=== PATIENT | male | born 1940 | race Caucasian/White ===

== ENCOUNTER 2017-09-21 07:26 | Outpatient (CLI) | payer MEDICARE, BC ==
[2017-09-21] MEDS ORDERED: Iopamidol 370 76% 100 ML VIAL ONE (09:00)
--- NOTE | 2017-09-21 10:05 | CT ---
CT THORAX WITH CONTRAST: DATE: 09/21/17. HISTORY: A 77-year-old male with myasthenia gravis. TECHNIQUE: IV iodinated contrast media: 60 mL of Isovue 370. COMPARISON: None. FINDINGS: There is no mediastinal mass or lymphadenopathy. Heavy atherosclerotic calcification of LAD and its branches. Ectasia of ascending thoracic aorta without aneurysm. No cardiomegaly, pericardial effusi on, pleural effusion, or pneumothorax. Tiny calcified granuloma in the right lower lobe. Otherwise, the lungs are essentially clear. No emphysematous changes. No destructive osseous lesion. Tiny 0. 5 cm hypodensity in the right lobe of the liver in hepatic segment 7, too small to characterize. The rest of the liver is normal. Inferior tip of right lobe of liver not included. A 1.7 cm round cyst ic lesion at lateral upper pole parenchyma of right kidney which is attached to a 1 cm daughter cyst, which contains tiny focal hyperdensity at its posterior edge, perhaps a calcification. There are mu ltiple cysts in the left kidney. No adrenal mass or splenomegaly. IMPRESSION: 1. No thymoma. 2. Multiple bilateral renal cysts, including what may be a Bosniak category II cystic lesion in the right renal upper pole, incompletely characterized on a single phase scan. 3. Coronary atherosclerotic disease. LEORA Louis POS: [facility]
== END 2017-09-21 07:27 | disposition home or self-care (01) ==
LOC: SCSCT 07:26
PROVIDERS: ATTEND Psychiatry & Neurology Neurology
DX: G70.00 Myasthenia gravis without (acute) exacerbation (principal); I25.10 Atherosclerotic heart disease of native coronary artery without angina pectoris; N28.1 Cyst of kidney, acquired
CPT/HCPCS: 71260; 82565

== ENCOUNTER 2019-02-11 15:00 | Inpatient (IN) | payer MEDICARE, BC ==
[2019-02-11 15:58] LABS: Hemoglobin 15.5 g/dL (14.0-18.0); Mean Corpuscular HGB CONC 33.7 g/dL (32.0-36.0); Mean Corpuscular Hemoglobin 32.6 pg (27.0-31.0); Mean Corpuscular Volume 96.6 fL (78.0-98.0); Mean Platelet Volume 6.6 fL (7.4-10.4); Platelet Count 227 thou/uL (130-400); RBC Distribution Width 11.9 % (11.5-14.5); Red Blood Cell (RBC) Count 4.76 mill/uL (4.70-6.10); White Blood Cell (WBC) Count 7.3 thou/uL (4.8-10.8)
[2019-02-11 16:16] LABS: Anion Gap 12 mmol/L (10-20); BUN (Urea Nitrogen) 23 mg/dL (8.4-25.7); Calc. Creatinine Clearance 0 mL/min (70-130); Calcium 9.3 mg/dL (7.8-10.44); Carbon Dioxide 24 mmol/L (23-31); Chloride 108 mmol/L (98-107); Estimated GFR-MDRD 67; Glucose 153 mg/dL (83-110); Potassium 4.7 mmol/L (3.5-5.1); Sodium 139 mmol/L (136-145)
[2019-02-14] MEDS ORDERED: Dexmedetomidine 200 MCG/2 ML VIAL ONE (06:34)
[2019-02-14] MEDS ORDERED: Midazolam HCl 2 mg/2 ml Vial ONE (06:34)
[2019-02-14] MEDS ORDERED: Vecuronium 10 MG VIAL ONE ×2 (06:34→16:53)
[2019-02-14] MEDS ORDERED: Fentanyl 100 MCG/2 ML VIAL ONE (06:34)
[2019-02-14] MEDS ORDERED: Midazolam HCl 5 mg/5 ml Vial ONE (06:34)
[2019-02-14] MEDS ORDERED: Heparin 10,000 UNITS/1 ML VIAL 30,000 UNITS in Sodium Chloride 0.9% 1,000 ML FS SCH (06:45)
[2019-02-14] MEDS ORDERED: ceFAZolin Sodium (SDC) 2 GM/100 ML BAG ONE (07:09)
[2019-02-14] MEDS ORDERED: Hydrocortisone Sod Succ/PF 100 mg/2 ml Vial ONE ×2 (07:22→16:53)
[2019-02-14] MEDS ORDERED: SUGAMMADEX SODIUM 500 MG/5 ML VIAL ONE (10:47)
[2019-02-14] MEDS ORDERED: SUGAMMADEX SODIUM 200 MG/2 ML VIAL ONE (10:48)
[2019-02-14] MEDS ORDERED: Bisacodyl 5 MG TAB PO PRN (11:09)
[2019-02-14] MEDS ORDERED: hydrALAZINE 20 MG/ML VIAL SLOW IVP PRN (11:09)
[2019-02-14] MEDS ORDERED: Bisacodyl 10 MG SUPP PR PRN (11:09)
[2019-02-14] MEDS ORDERED: Acetaminophen 325 MG TAB PO PRN (11:09)
[2019-02-14] MEDS ORDERED: Fentanyl 100 MCG/2 ML VIAL SLOW IVP PRN ×2 (11:09)
[2019-02-14] MEDS ORDERED: niCARdipine 25 MG in Sodium Chloride 0.9% 250 ML 250 ML IVPB PRN (11:09)
[2019-02-14] MEDS ORDERED: Post-Op Insulin Drip Protocol IVPB ONE (11:09)
[2019-02-14] MEDS ORDERED: Guaifenesin DM 100-10/5 ML UDCUP PO PRN (11:09)
[2019-02-14] MEDS ORDERED: HEXTEND 6% LR 500ML 500 ML IVPB PRN (11:09)
[2019-02-14] MEDS ORDERED: Norepinephrine 8 MG in Dextrose 5% in Water 242 ML IVPB PRN (11:09)
[2019-02-14] MEDS ORDERED: Promethazine HCl 25 MG/ML VIAL IM PRN (11:09)
[2019-02-14] MEDS ORDERED: HYDROcodone/Acetaminophen 5/325 mg Tablet PO PRN ×2 (11:09)
[2019-02-14] MEDS ORDERED: Morphine 4 MG/ML VIAL SLOW IVP PRN (11:09)
[2019-02-14] MEDS ORDERED: Ondansetron PF 4 MG/2 ML Vial IVP PRN (11:09)
[2019-02-14] MEDS ORDERED: Mag-Al 1200 mg/1200 mg/30 ML UDCUP PO PRN (11:09)
[2019-02-14] MEDS ORDERED: Nitroglycerin 50 MG/250 ML BOT 250 ML IVPB PRN (11:09)
[2019-02-14] MEDS ORDERED: DOPamine 400 MG/D5W 250 ML 250 ML IVPB PRN (11:09)
[2019-02-14] MEDS ORDERED: Potassium Chloride 20 MEQ/100 ML PREMIX BAG IVPB PRN (11:09)
[2019-02-14 11:29] LABS: Actual Bicarbonate (HCO3a) 23.4 mEq/L (22-28); Base Excess (BEa) -3.5 mEq/L (-2.0 to +3.0); CO2 Tension 49.4 mmHg (35.0-45.0); Calcium, Ionized 1.29 mmol/L (1.12-1.30); Carboxyhemoglobin (COHb) 1.3 gm% (0.0-3.0); Hemoglobin (Hb) 13.7 g/dL (14.0-18.0); O2 Tension (PaO2) 84.7 mmHg (> 70.0); Potassium - ABG Lab 4.92 mmol/L (3.70-5.30); pH, Arterial 7.29 (7.35-7.45)
[2019-02-14 11:30] LABS: Puncture Site ALINE
[2019-02-14] MEDS ORDERED: Dextrose 5% in Water 1,000 ML IV PRN ×2 (11:33→12:00)
[2019-02-14] MEDS ORDERED: HUMULIN R 100 UNITS in Sodium Chloride 0.9% 100 ML IVPB SCH ×2 (11:33→12:00)
[2019-02-14] MEDS ORDERED: Dextrose 50% Abboject 50 ML SYRINGE SLOW IVP PRN ×2 (11:33→12:00)
[2019-02-14] MEDS ORDERED: Insulin Regular 300 UNITS/3 ML VIAL SC PRN ×2 (11:33→12:00)
--- NOTE | 2019-02-14 11:34 | RAD ---
EXAM: Single view of the chest HISTORY: Status post open heart surgery COMPARISON: None FINDINGS: Single view of the chest shows a normal sized cardiomediastinal silhouette. The patient is status post CABG. There is an endotracheal tube with its tip between the clavicles. An NG tube is seen in the stomach. A right subclavian central venous catheter is seen with its tip in the superior vena cava. . There is a mediastinal drain and left chest tube without evidence of pneumothorax. There is no evidence of consolidation, mass, or pleural effusion. The bones are unremarkable. IMPRESSION: Appropriate position of lines and tubes status post sternotomy.
[2019-02-14 11:36] LABS: #Eosinphils 0.1 thou/uL (0.0-0.7); #Lymphocytes 1.3 thou/uL (1.20-3.40); #Monocytes 0.8 thou/uL (0.11-0.59); #Neutrophils 16.2 thou/uL (1.40-6.50); %Basophils 0.1 % (0.0-1.0); %Eosinophils 0.4 % (0.0-10.0); %Lymphocytes 6.9 % (21.0-51.0); %Monocytes 4.5 % (0.0-10.0); %Neutrophils 88.2 % (42.0-75.0); Hemoglobin 13.5 g/dL (14.0-18.0); Mean Corpuscular HGB CONC 33.7 g/dL (32.0-36.0); Mean Corpuscular Hemoglobin 33.2 pg (27.0-31.0); Mean Corpuscular Volume 98.7 fL (78.0-98.0); Mean Platelet Volume 6.5 fL (7.4-10.4); Platelet Count 181 thou/uL (130-400); RBC Distribution Width 11.9 % (11.5-14.5); Red Blood Cell (RBC) Count 4.08 mill/uL (4.70-6.10); White Blood Cell (WBC) Count 18.3 thou/uL (4.8-10.8)
[2019-02-14 11:47] LABS: INR-International Normal Ratio 1.4; PTT 28.7 SEC (22.9-36.1); Prothrombin Time 16.7 SEC (12.0-14.7)
[2019-02-14] MEDS ORDERED: Magnesium 2 GM/50 ML 2 GM in Premix Bag 1 BAG IVPB SCH (12:00)
[2019-02-14] MEDS: Ketorolac Tromethamine 30 MG/ML VIAL IVP SCH ×3 (12:00→23:18)
[2019-02-14 12:02] LABS: Anion Gap 9 mmol/L (10-20); BUN (Urea Nitrogen) 19 mg/dL (8.4-25.7); Calc. Creatinine Clearance 76 mL/min (70-130); Calcium 9.3 mg/dL (7.8-10.44); Carbon Dioxide 24 mmol/L (23-31); Chloride 109 mmol/L (98-107); Estimated GFR-MDRD 85; Glucose 167 mg/dL (83-110); Potassium 4.9 mmol/L (3.5-5.1); Sodium 137 mmol/L (136-145)
[2019-02-14] MEDS: Lactated Ringer's 1,000 ML IV SCH (12:21)
[2019-02-14] MEDS: CEFAZOLIN 2 GM, Admixture Fee 1 EACH in Sodium Chloride 0.9% 100 ML IVPB SCH ×2 (14:27→21:15)
[2019-02-14 15:41] LABS: Actual Bicarbonate (HCO3a) 18.5 mEq/L (22-28); Base Excess (BEa) -5.3 mEq/L (-2.0 to +3.0); CO2 Tension 30.6 mmHg (35.0-45.0); Calcium, Ionized 1.13 mmol/L (1.12-1.30); Carboxyhemoglobin (COHb) 0.8 gm% (0.0-3.0); O2 Tension (PaO2) 139.9 mmHg (> 70.0); Potassium - ABG Lab 4.29 mmol/L (3.70-5.30)
[2019-02-14 15:42] LABS: Puncture Site ALINE
--- NOTE | 2019-02-14 15:51 | OP ---
DATE OF PROCEDURE: 02/14/2019 PREOPERATIVE DIAGNOSIS: Coronary artery disease. POSTOPERATIVE DIAGNOSIS: Coronary artery disease. PROCEDURE PERFORMED: Coronary artery bypass graft x2, left internal mammary artery good quality to a 1.5 mm distal LAD, saphenous vein good quality to a 1.5 mm ramus. MACHINE SETTER SHEET METAL: Dr. Berg. TRANSFUSION: None. DESCRIPTION OF PROCEDURE: After adequate anesthesia had been obtained, the patient was prepped and draped. Dr. Berg harvested saphenous vein from the left lower leg while I performed a median sternotomy. After opening the sternum, left internal mammary artery was harvested. Pleura was widely entered while tunneling posterior to the thymus for the NICKOLAS graft. Aorta and right atrium were cannulated. Cardiopulmonary bypass was begun. Vessels were inspected for grafting. The aorta crossclamped and a liter of cold blood cardioplegia given through the aortic root. Two distal anastomoses were completed, following which the cross-clamp was removed, partial occluding clamp placed, and a single proximal anastomosis performed on the aortic root. Following completion of this, proximal and distal anastomoses were examined. The patient was asystolic at that point and temporary atrial and ventricular pacing wires were placed. The sluggish left ventricular systolic function gradually improved with pressor support and the patient was then slowly weaned from cardiopulmonary bypass, now only requiring atrial pacing. Following this, protamine was given systemically and the atrial and aortic cannulation site secured with the aortic site being secured with an additional 4-0 Prolene suture. Following this, the patient had diffuse oozing despite ACT levels that were back to baseline. All sites were examined multiple times for bleeding. Mediastinal and left pleural drains were placed, following which the sternum was reapproximated with #7 interrupted wire. Vancomycin paste was used on the sternal edges as well as platelet-rich blood and platelet-poor plasma. Subcutaneous tissue and skin were closed in layers. Job ID: [id number]
--- NOTE | 2019-02-14 16:43 | CON ---
DATE OF CONSULTATION: HISTORY OF PRESENT ILLNESS: José Manuel Manley is a 78-year-old white male, patient of Dr. Rodríguez. Approximately 11 years ago, he had a coronary artery stent placement. He then recently underwent cardiac catheterization, was found to have an 80% stenosis in the proximal LAD with 70% lesion in the ramus and 80% lesion in a small high diagonal. He has now undergone CABG x2 by Dr. Gardner with CHAPMAN to the LAD and saphenous vein graft to the ramus. He is currently intubated, sedated postoperatively in the ICU and cannot give a history. PAST MEDICAL HISTORY: Hypertension, hypercholesterolemia, and myasthenia gravis. MEDICATIONS: 1. Aspirin 81 two tablets at bedtime. 2. Azathioprine 50 mg b.i.d. 3. Calcium carbonate two tablets daily. 4. Carvedilol 12.5 mg - 1-1/2 tablets q.a.m., one tablet at bedtime. 5. Doxycycline 20 mg for gum infection prevention. 6. Probiotic one capsule daily. 7. Losartan 100 mg at bedtime. 8. Magnesium oxide 500 mg daily. 9. Multivitamin daily. 10. Fish oil 1200 mg daily. 11. Prednisone 20 mg 1/2 tablet daily. 12. Simvastatin 40 mg at bedtime. ALLERGIES: NONE. OPERATIONS: Coronary artery stent placement, appendectomy, and hernia surgery. SOCIAL HISTORY: He does not smoke. FAMILY HISTORY: Father had heart disease. REVIEW OF SYSTEMS: Unobtainable. PHYSICAL EXAMINATION: VITAL SIGNS: Blood pressure 103/70 and pulse of 82, atrially paced postoperatively. HEENT: PERRL. NECK: Supple. CHEST: Clear. CARDIAC: S1 and S2 are normal without any S3, S4, or murmurs. ABDOMEN: Quiet nontenderness. EXTREMITIES: Revealed no clubbing, cyanosis, or edema. NEUROLOGIC: The patient is sedated, although we will open his eyes and at times follow commands. LABORATORY DATA: EKG reveals normal sinus rhythm with finding of inferior infarction. Hemoglobin 13.5, hematocrit 40.2, white count 18,300, platelets 181,000. A pH 7.29, pCO2 of 49.4, pO2 of 84.7. Sodium 137, potassium 4.9, chloride 109 carbon dioxide 24, BUN 19, creatinine 0.87. IMPRESSION: 1. Status post coronary artery bypass grafting x2. 2. Atrially paced at this time. 3. Hypertension. 4. Hyperlipidemia. 5. Possible family history. 6. Myasthenia gravis. PLAN: The patient is being weaned from the ventilator as well as low-dose norepinephrine. Fasting lipid profile will be obtained in the morning. We will follow the patient with you. Job ID: [id number] MTDD
[2019-02-14] MEDS ORDERED: ePHEDrine 50 MG/ML VIAL ONE (16:53)
[2019-02-14] MEDS ORDERED: Aminocaproic Acid 5 GM/20 ML VIAL ONE (16:53)
[2019-02-14] MEDS ORDERED: DOPamine 400 MG/10 ML VIAL ONE (16:53)
[2019-02-14] MEDS ORDERED: Potassium Chloride 60 MEQ/30 ML VIAL ONE (16:53)
[2019-02-14] MEDS ORDERED: Calcium Chloride 1 GM/10 ML Abboject SYRINGE ONE (16:53)
[2019-02-14] MEDS ORDERED: Norepinephrine 4 MG/4 ML VIAL ONE (16:53)
[2019-02-14] MEDS ORDERED: Thrombin 5000 UNITS/5 ML VIAL ONE (16:53)
[2019-02-14] MEDS ORDERED: Nitroglycerin 50 MG/250 ML BOT ONE (16:53)
[2019-02-14] MEDS ORDERED: Heparin 5,000 UNITS/ML VIAL ONE (16:53)
[2019-02-14] MEDS ORDERED: Protamine Sulfate 250 MG/25 ML VIAL ONE (16:53)
[2019-02-14] MEDS ORDERED: Heparin 30,000 units/30 ml VIAL ONE (16:53)
[2019-02-14] MEDS ORDERED: Mannitol 12.5 GM/50 ML ONE (16:53)
[2019-02-14] MEDS ORDERED: PHENYLEPHRINE-NS 100 MCG/ML 10 ML SYRINGE ONE (16:53)
[2019-02-14] MEDS ORDERED: Sodium Bicarb 50 MEQ/50 ML VIAL ONE (16:53)
[2019-02-14] MEDS ORDERED: Papaverine 60 MG/2 ML VIAL ONE (16:53)
[2019-02-14] MEDS ORDERED: Cardioplegic Soln 1,000 ML BAG ONE (16:53)
[2019-02-14] MEDS ORDERED: Lidocaine 2% PF 100 mg/5 ml Syringe ONE (16:53)
[2019-02-14] MEDS ORDERED: Magnesium 5 GM/10 ML VIAL ONE (16:53)
[2019-02-14 17:08] LABS: Hemoglobin 12.1 g/dL (14.0-18.0)
[2019-02-14 17:19] LABS: Potassium 4.4 mmol/L (3.5-5.1)
[2019-02-14] MEDS: Famotidine/PF 20 mg/2ml Vial SLOW IVP SCH (21:15)
[2019-02-15] MEDS: Lactated Ringer's 1,000 ML IV SCH (02:21)
[2019-02-15 04:11] LABS: #Monocytes 0.9 thou/uL (0.11-0.59); #Neutrophils 7.9 thou/uL (1.40-6.50); %Basophils 0.1 % (0.0-1.0); %Eosinophils 0.2 % (0.0-10.0); %Lymphocytes 9.7 % (21.0-51.0); %Monocytes 9.6 % (0.0-10.0); %Neutrophils 80.4 % (42.0-75.0); Hemoglobin 12.1 g/dL (14.0-18.0); Mean Corpuscular HGB CONC 33.7 g/dL (32.0-36.0); Mean Corpuscular Hemoglobin 33.1 pg (27.0-31.0); Mean Corpuscular Volume 98.3 fL (78.0-98.0); Mean Platelet Volume 6.9 fL (7.4-10.4); Platelet Count 207 thou/uL (130-400); RBC Distribution Width 12.2 % (11.5-14.5); Red Blood Cell (RBC) Count 3.64 mill/uL (4.70-6.10); White Blood Cell (WBC) Count 9.8 thou/uL (4.8-10.8)
[2019-02-15 04:32] LABS: Anion Gap 10 mmol/L (10-20); BUN (Urea Nitrogen) 23 mg/dL (8.4-25.7); Calc. Creatinine Clearance 88 mL/min (70-130); Calcium 8.2 mg/dL (7.8-10.44); Carbon Dioxide 23 mmol/L (23-31); Cardiac Risk 2.3 (Less than 4.5); Chloride 109 mmol/L (98-107); Cholesterol 108 mg/dl (< 200 Desired); Estimated GFR-MDRD 90; Glucose 107 mg/dL (83-110); HDL Cholesterol 47 mg/dL (>60 Neg Risk); LDL Cholesterol, Calculated 46 mg/dL; Potassium 4.1 mmol/L (3.5-5.1); Sodium 138 mmol/L (136-145); Triglycerides 75 mg/dL (Less than 150)
[2019-02-15] MEDS: Ketorolac Tromethamine 30 MG/ML VIAL IVP SCH ×4 (05:21→23:56)
--- NOTE | 2019-02-15 08:38 | RAD ---
CHEST ONE VIEW: INDICATIONS: Status post open heart surgery. COMPARISON: 02/14/2019 IMPRESSION: The patient was extubated with removal of the gastric catheter. The right subclavian central venous catheter, the mediastinal drain, and the left-sided thoracostomy tube are unchanged. The left-sided pleural effusion with left basilar opacity, likely reflecting atelectasis or pneumonia, is stable. N o pneumothorax is evident. POS: [facility]
[2019-02-15] MEDS: Famotidine/PF 20 mg/2ml Vial SLOW IVP SCH ×2 (08:41→20:33)
[2019-02-15] MEDS: Carvedilol 3.125 MG TAB PO SCH ×2 (08:41→17:33)
[2019-02-15] MEDS: CEFAZOLIN 2 GM, Admixture Fee 1 EACH in Sodium Chloride 0.9% 100 ML IVPB SCH (08:42)
[2019-02-15] MEDS: predniSONE 5 MG TAB PO SCH (08:42)
[2019-02-15] MEDS ORDERED: Aspirin Chewable 81 MG TAB PO SCH (09:00)
[2019-02-15] MEDS ORDERED: Polyethylene Glycol 3350 17 GM Packet PO SCH (09:00)
[2019-02-15 15:00] LABS: Actual Bicarbonate (HCO3a) 23.6 mEq/L (22-28); Analyzer IN Cardio OR; Base Excess (BEa) -2.7 mEq/L (-2.0 to +3.0); CO2 Tension 46.8 mmHg (35.0-45.0); Calcium, Ionized 1.05 mmol/L (1.12-1.30); Carboxyhemoglobin (COHb) 0.3 gm% (0.0-3.0); Hemoglobin (Hb) 11.8 g/dL (14.0-18.0); O2 Tension (PaO2) 423.7 mmHg (> 70.0); Potassium - ABG Lab 5.55 mmol/L (3.70-5.30); pH, Arterial 7.32 (7.35-7.45)
[2019-02-15 15:00] LABS: Actual Bicarbonate (HCO3a) 21.5 mEq/L (22-28); Analyzer IN Cardio OR; Base Excess (BEa) -4.6 mEq/L (-2.0 to +3.0); CO2 Tension 43.8 mmHg (35.0-45.0); Calcium, Ionized 1.13 mmol/L (1.12-1.30); Carboxyhemoglobin (COHb) 0.5 gm% (0.0-3.0); Hemoglobin (Hb) 12.2 g/dL (14.0-18.0); O2 Tension (PaO2) 378.9 mmHg (> 70.0); Potassium - ABG Lab 5.08 mmol/L (3.70-5.30); pH, Arterial 7.31 (7.35-7.45)
[2019-02-15 15:01] LABS: Actual Bicarbonate (HCO3a) 22.5 mEq/L (22-28); Analyzer IN Cardio OR; Base Excess (BEa) -3.4 mEq/L (-2.0 to +3.0); CO2 Tension 43.9 mmHg (35.0-45.0); Carboxyhemoglobin (COHb) 0.5 gm% (0.0-3.0); Hemoglobin (Hb) 14.6 g/dL (14.0-18.0); O2 Tension (PaO2) 424.5 mmHg (> 70.0); Potassium - ABG Lab 4.38 mmol/L (3.70-5.30); pH, Arterial 7.33 (7.35-7.45)
[2019-02-15 15:01] LABS: Base Excess (BEa) -3.1 mEq/L (-2.0 to +3.0); CO2 Tension 34.6 mmHg (35.0-45.0); Carboxyhemoglobin (COHb) 0.9 gm% (0.0-3.0); Hemoglobin (Hb) 14.6 g/dL (14.0-18.0); O2 Tension (PaO2) 331.6 mmHg (> 70.0); Potassium - ABG Lab 4.23 mmol/L (3.70-5.30)
[2019-02-15 15:02] LABS: Analyzer IN Cardio OR; Calcium, Ionized 1.15 mmol/L (1.12-1.30)
[2019-02-15 15:44] LABS: Puncture Site ALINE
[2019-02-15 15:44] LABS: Puncture Site ALINE
[2019-02-15 15:45] LABS: Puncture Site ALINE
[2019-02-15 15:46] LABS: Puncture Site ALINE
[2019-02-15] MEDS: Simvastatin 40 MG TAB PO SCH (20:33)
[2019-02-16] MEDS: Ketorolac Tromethamine 30 MG/ML VIAL IVP SCH (05:13)
[2019-02-16 05:50] LABS: #Lymphocytes 1.3 thou/uL (1.20-3.40); #Monocytes 0.9 thou/uL (0.11-0.59); #Neutrophils 6.1 thou/uL (1.40-6.50); %Basophils 0.1 % (0.0-1.0); %Eosinophils 0.4 % (0.0-10.0); %Lymphocytes 15.1 % (21.0-51.0); %Monocytes 11.3 % (0.0-10.0); %Neutrophils 73.1 % (42.0-75.0); Hemoglobin 12.7 g/dL (14.0-18.0); Mean Corpuscular HGB CONC 33.5 g/dL (32.0-36.0); Mean Corpuscular Hemoglobin 32.8 pg (27.0-31.0); Mean Corpuscular Volume 98.1 fL (78.0-98.0); Mean Platelet Volume 6.9 fL (7.4-10.4); Platelet Count 197 thou/uL (130-400); RBC Distribution Width 12.1 % (11.5-14.5); Red Blood Cell (RBC) Count 3.85 mill/uL (4.70-6.10); White Blood Cell (WBC) Count 8.3 thou/uL (4.8-10.8)
[2019-02-16 05:54] LABS: Anion Gap 9 mmol/L (10-20); BUN (Urea Nitrogen) 21 mg/dL (8.4-25.7); Calc. Creatinine Clearance 82 mL/min (70-130); Calcium 8.7 mg/dL (7.8-10.44); Carbon Dioxide 26 mmol/L (23-31); Chloride 110 mmol/L (98-107); Estimated GFR-MDRD 88; Glucose 96 mg/dL (83-110); Potassium 3.8 mmol/L (3.5-5.1); Sodium 141 mmol/L (136-145)
[2019-02-16] MEDS ORDERED: Nitroglycerin 0.4 MG TAB (25 Tab Bottle) SL PRN (07:06)
[2019-02-16] MEDS ORDERED: Mineral Oil ENEMA PR PRN (07:06)
[2019-02-16] MEDS ORDERED: Bisacodyl 10 MG SUPP PR PRN (07:06)
[2019-02-16] MEDS ORDERED: Fentanyl 100 MCG/2 ML VIAL SLOW IVP PRN (07:06)
[2019-02-16] MEDS ORDERED: Acetaminophen 325 MG TAB PO PRN (07:06)
[2019-02-16] MEDS ORDERED: Guaifenesin DM 100-10/5 ML UDCUP PO PRN (07:06)
[2019-02-16] MEDS ORDERED: HYDROcodone/Acetaminophen 5/325 mg Tablet PO PRN (07:06)
[2019-02-16] MEDS ORDERED: Mag-Al 1200 mg/1200 mg/30 ML UDCUP PO PRN (07:06)
[2019-02-16] MEDS ORDERED: Bisacodyl 5 MG TAB PO PRN (07:06)
[2019-02-16] MEDS: Polyethylene Glycol 3350 17 GM Packet PO SCH (08:12)
[2019-02-16] MEDS: Furosemide 40 MG TAB PO SCH (08:13)
[2019-02-16] MEDS: Aspirin 325 mg Enteric Coated Tablet PO SCH (08:13)
[2019-02-16] MEDS: Potassium Chloride 20 MEQ TAB PO SCH (08:13)
[2019-02-16] MEDS: Famotidine 20 MG TAB PO SCH ×2 (08:13→21:24)
[2019-02-16] MEDS: predniSONE 5 MG TAB PO SCH (08:13)
--- NOTE | 2019-02-16 09:34 | RAD ---
PORTABLE CHEST: Date: 02/16/19 HISTORY: Postop open heart surgery. COMPARISON: Prior day's study. FINDINGS: Heart size is enlarged. There are postop sternotomy changes. Right subclavian line is unchanged in po sition. Left chest tube is unchanged. Left basilar opacity is stable. IMPRESSION: Stable exam. POS: [facility]
[2019-02-16 10:26] LABS: Analyzer IN Cardio OR; Base Excess (BEa) -1.6 mEq/L (-2.0 to +3.0); CO2 Tension 38.6 mmHg (35.0-45.0); Calcium, Ionized 1.14 mmol/L (1.12-1.30); Carboxyhemoglobin (COHb) 0.9 gm% (0.0-3.0); Hemoglobin (Hb) 14.7 g/dL (14.0-18.0); Potassium - ABG Lab 4.19 mmol/L (3.70-5.30); pH, Arterial 7.39 (7.35-7.45)
[2019-02-16 10:26] LABS: Actual Bicarbonate (HCO3a) 20.7 mEq/L (22-28); Analyzer IN Cardio OR; Base Excess (BEa) -3.2 mEq/L (-2.0 to +3.0); Calcium, Ionized 1.16 mmol/L (1.12-1.30); Carboxyhemoglobin (COHb) 0.8 gm% (0.0-3.0); Hemoglobin (Hb) 14.5 g/dL (14.0-18.0); O2 Tension (PaO2) 383.5 mmHg (> 70.0); Potassium - ABG Lab 4.29 mmol/L (3.70-5.30); Puncture Site ALINE
[2019-02-16 10:27] LABS: Puncture Site ALINE
[2019-02-16] MEDS: Carvedilol 3.125 MG TAB PO SCH ×2 (11:12→21:24)
--- NOTE | 2019-02-16 13:14 | EKG ---
Test Reason : POST Blood Pressure : / mmHG Vent. Rate : 061 BPM Atrial Rate : 061 BPM P-R Int : 156 ms QRS Dur : 092 ms QT Int : 416 ms P-R-T Axes : 065 -27 -03 degrees QTc Int : 418 ms Normal sinus rhythm Inferior infarct (cited on or before 11-FEB-2019) Abnormal ECG When compared with ECG of 11-FEB-2019 15:43, Premature supraventricular complexes are no longer Present Confirmed by TESFAYE BENSON ([id number]) on 02/16/2019 1:14:17 PM Referred By: ERIKA Confirmed By:TESFAYE BENSON
[2019-02-16] MEDS: Simvastatin 40 MG TAB PO SCH (21:24)
[2019-02-17] MEDS: Aspirin 325 mg Enteric Coated Tablet PO SCH (10:19)
[2019-02-17] MEDS: predniSONE 5 MG TAB PO SCH (10:19)
[2019-02-17] MEDS: Potassium Chloride 20 MEQ TAB PO SCH (10:20)
[2019-02-17] MEDS: Furosemide 40 MG TAB PO SCH (10:20)
[2019-02-17] MEDS: Polyethylene Glycol 3350 17 GM Packet PO SCH (10:20)
[2019-02-17] MEDS: Famotidine 20 MG TAB PO SCH ×2 (10:20→19:50)
[2019-02-17] MEDS: Carvedilol 3.125 MG TAB PO SCH ×2 (10:20→19:50)
[2019-02-17] MEDS: Amiodarone 200 MG TAB PO SCH (19:50)
[2019-02-17] MEDS: Simvastatin 40 MG TAB PO SCH (19:50)
[2019-02-18 05:09] VITALS: BMI 23.0
[2019-02-18] MEDS ORDERED: Carvedilol 3.125 MG TAB PO SCH (06:42)
[2019-02-18] MEDS ORDERED: Carvedilol 6.25 MG TAB PO SCH (09:00)
[2019-02-18] MEDS ORDERED: Losartan 25 MG TAB PO SCH (09:00)
--- NOTE | 2019-02-18 09:03 | DIS ---
DATE OF ADMISSION: 02/14/2019 DATE OF DISCHARGE: 02/18/2019 HOSPITAL COURSE: The patient was admitted, underwent coronary artery bypass grafting on 02/14 to the LAD and ramus. His postoperative course was eventful only for about 30 minutes of atrial fibrillation on the morning of 02/17. He will be discharged today on amiodarone 1-month supply 200 b.i.d. as well as Coreg 6.25 b.i.d., losartan 50 daily. He is to resume his home aspirin, statin, prednisone, and I have asked him to resume his Imuran in about 1 week. Discharge and followup instructions were given. Job ID: [id number]
[2019-02-18] MEDS: predniSONE 5 MG TAB PO SCH (09:20)
[2019-02-18] MEDS: Amiodarone 200 MG TAB PO SCH (09:20)
[2019-02-18] MEDS: Polyethylene Glycol 3350 17 GM Packet PO SCH (09:20)
[2019-02-18] MEDS: Aspirin 325 mg Enteric Coated Tablet PO SCH (09:20)
[2019-02-18] MEDS: Famotidine 20 MG TAB PO SCH (09:20)
[2019-02-18 11:35] VITALS: BP 119/71; TEMP 97.7
== END 2019-02-18 12:10 | disposition home or self-care (01) | DRG 236 ==
LOC: SURG A 02-14 05:53 → CCU 02-14 09:22 → 2NO 02-16 18:42
PROVIDERS: ADMIT Thoracic Surgery (Cardiothoracic Vascular Surgery); ATTEND Thoracic Surgery (Cardiothoracic Vascular Surgery)
PROC: 02104Z9 Bypass Coronary Artery, One Artery from Left Internal Mammary, Percutaneous Endoscopic Approach (ICD-10-PCS; principal; 2019-02-14)
PROC: 021 Heart and Great Vessels, Bypass (ICD-10-PCS; 2019-02-14)
PROC: 06BQ3ZZ Excision of Left Saphenous Vein, Percutaneous Approach (ICD-10-PCS; 2019-02-14)
DX: I25.10 Atherosclerotic heart disease of native coronary artery without angina pectoris (principal); I10 Essential (primary) hypertension; E78.00 Pure hypercholesterolemia, unspecified; G70.00 Myasthenia gravis without (acute) exacerbation; I48.91 Unspecified atrial fibrillation; Z79.82 Long term (current) use of aspirin; Z79.899 Other long term (current) drug therapy; Z95.5 Presence of coronary angioplasty implant and graft; Z90.49 Acquired absence of other specified parts of digestive tract
CPT/HCPCS: 36416; 36430; 71045; 80048; 80061; 82805; 85025; 85027; 85610; 85730; 86850; 86900; 86901; 93005; 93010; 93798; 94002; 94150; J0360; J0690; J1265; J1642; J1644; J1720; J1815; J1885; J2001; J2150; J2250; J2270; J2440; J2720; J3010; J3370; J3475; J3480; J3490; J7050; J7512; P9035; P9045; S0017; S0028

== ENCOUNTER 2019-02-11 15:07 | Outpatient (CLI) | payer MEDICARE, BC ==
--- NOTE | 2019-02-14 09:01 | EKG ---
Test Reason : Blood Pressure : / mmHG Vent. Rate : 080 BPM Atrial Rate : 080 BPM P-R Int : 156 ms QRS Dur : 088 ms QT Int : 390 ms P-R-T Axes : 050 -10 -05 degrees QTc Int : 449 ms Sinus rhythm with Premature supraventricular complexes Minimal voltage criteria for LVH, may be normal variant Inferior infarct , age undetermined Abnormal ECG No previous ECGs available Confirmed by DR. Lisa WILLIAMSON ([id number]) on 02/14/2019 9:01:30 AM Referred By: ERIKA Confirmed By:DR. Lisa WILLIAMSON
== END 2019-02-11 15:08 | disposition home or self-care (01) ==
LOC: LABBT 15:07
PROVIDERS: ATTEND Thoracic Surgery (Cardiothoracic Vascular Surgery)
DX: Z01.810 Encounter for preprocedural cardiovascular examination (principal); I25.10 Atherosclerotic heart disease of native coronary artery without angina pectoris
CPT/HCPCS: 93005; 93010